=== PATIENT | male | born 1990 | race Caucasian/White ===

== ENCOUNTER 2016-10-27 01:47 | Emergency (ER) | payer SELFPAY ==
[2016-10-27] MEDS ORDERED: NALOXONE 0.4 MG/ML 10 ML VIAL IVP STA (02:00)
--- NOTE | 2016-10-27 02:21 | ED ---
General Adult HPI - General Chief complaint: Overdose Stated complaint: Overdose Time Seen by Provider: 10/27/16 02:00 Source: patient, EMS, RN notes reviewed Mode of arrival: EMS Limitations: no limitations - History of Present Illness Initial comments: Patient 26-year-old male who presents emergency room today by EMS, the chief complaint of abnormal abnormal gait at [facility] per EMS. Patient does admit that he's been up for 72 hours. He states he's been working on computer Ticies. Patient states he did take a lot of Benadryl. 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 He denies any complaints other than feeling anxious as he does not like to be in hospitals. He does admit that he did take a [place] earlier in the morning approximate 10:30 AM. He denies any other street drugs or prescription drugs. Patient denies any other complaints or symptoms. Patient denies any recent fever, chills, shortness of breath, chest pain, back pain, abdominal pain, nausea or vomiting, numbness or tingling , dysuria or hematuria, constipation or diarrhea, headaches or visual changes, or any other complaints. - Related Data Previous Rx's Medication Instructions Recorded Hydrocortisone Pr Cream 1 applic RECTAL BID #30 tube 07/15/16 [Proctosol-Hc 2.5%] Allergies Allergy/AdvReac Type Severity Reaction Status Date / Time No Known Allergies Allergy Verified 07/15/16 16:17 Review of Systems ROS Statement: Those systems with pertinent positive or pertinent negative responses have been documented in the HPI. ROS Other: All systems not noted in ROS Statement are negative. Past Medical History Past Medical History: No Reported History History of Any Multi-Drug Resistant Organisms: None Reported Past Surgical History: Adenoidectomy Past Psychological History: No Psychological Hx Reported Smoking Status: Current every day smoker Past Alcohol Use History: None Reported Past Drug Use History: Heroin, Marijuana General Exam - General Exam Comments Initial Comments: General: The patient is awake and alert, in no distress, and does not appear acutely ill. Eye: Pupils are equal, round and reactive to light, extra-ocular movements are intact. No nystagmus. There is normal conjunctiva bilaterally. No signs of icterus. Ears, nose, mouth and throat: There are moist mucous membranes and no oral lesions. Neck: The neck is supple, there is no tenderness or JVD. Cardiovascular: There is a regular rate and rhythm. No murmur, rub or gallop is appreciated. Respiratory: Lungs are clear to auscultation, respirations are non-labored, breath sounds are equal. No wheezes, stridor, rales, or rhonchi. Gastrointestinal: Soft, non-distended, non-tender abdomen without masses or organomegaly noted. There is no rebound or guarding present. No CVA tenderness. Bowel sounds are unremarkable. Musculoskeletal: Normal ROM, no tenderness. Strength 5/5. Sensation intact. Pulses equal bilaterally 2+. Neurological: A&O x 3. CN II-XII intact, There are no obvious motor or sensory deficits. Coordination appears grossly intact. Speech is normal. Skin: Skin is warm and dry and no rashes or lesions are noted. Psychiatric: Cooperative, appropriate mood & affect, normal judgment. Limitations: no limitations Course Vital Signs 10/27/16 01:52 Temperature 98.3 F Pulse Rate 99 Respiratory 14 Rate Blood Pressure 155/69 O2 Sat by Pulse 96 Oximetry Medical Decision Making - Medical Decision Making Patient has normal neurological exam here the emergency room. He denies any complaints. Patient is able to walk up and down the hallways with no problems. Patient will be discharged. Will be given a cab ride home. Disposition Clinical Impression: Well adult exam Disposition: HOME SELF-CARE Condition: Stable Additional Instructions: Please follow family doctor over the next 1-2 days. Please return to emergency room if any symptoms increase or worsen or for any other concerns. Referrals: None,Stated [Primary Care Provider] - 1-2 days Josh Navarro MD [REFERRING] - 1-2 days Time of Disposition: 02:21
[2016-10-27 02:35] VITALS: BP 133/67; PULSE 87; RESP 18; TEMP 97.1
== END 2016-10-27 02:34 | disposition home or self-care (01) ==
LOC: EC 01:47
DX: Z03.6 Encounter for observation for suspected toxic effect from ingested substance ruled out (principal); F17.200 Nicotine dependence, unspecified, uncomplicated
CPT/HCPCS: 99284